=== PATIENT | female | born 2000 | race Caucasian/White ===

== ENCOUNTER 2019-04-23 00:11 | Emergency (ER) | payer SELFPAY ==
[~2019-04-23] VITALS: Ht 165.1 cm; Wt 79.4 kg
[2019-04-23 00:27] VITALS: Ht 165.1 cm; Wt 79.4 kg
[2019-04-23 02:51] LABS: microscopic required? YES; urine erythrocyte 2+ (NEGATIVE)
[2019-04-23 03:51] VITALS: BP 117/77
== END 2019-04-23 03:51 | disposition home or self-care (01) ==
LOC: ED 00:11
PROVIDERS: Emergency Medicine
DX: N39.0 Urinary tract infection, site not specified (principal)
CPT/HCPCS: J1885